=== PATIENT | female | born 1940 | race Caucasian/White ===

== ENCOUNTER 2021-11-18 08:52 | Emergency (ER) | payer OTHER ==
[~2021-11-18] VITALS: Ht 157.5 cm; Wt 71.2 kg
[2021-11-18] MEDS ORDERED: HYDR12.55 PO (09:04)
[2021-11-18] MEDS ORDERED: EZET10TA15 PO (09:05)
--- NOTE | 2021-11-18 09:34 | NUR ---
iv started on right AC, 20G, labs drawn at this time and sent to lab with urine sample. tolerated.
[2021-11-18 09:38] LABS: *BILIRUBIN,URIN NEGATIVE (NEGATIVE); *BLOOD, URINE 1+ (NEGATIVE); *CLARITY,URINE CLEAR (CLEAR); *COLOR,URINE YELLOW (YELLOW); *KETONES,URINE NEGATIVE (NEGATIVE); *UROBILINOGEN,URINE 0.2 E.U./dl (NORMAL); HEMATOCRIT 38.9 % (31.2-41.9); LEUKOCYTE ESTERASE ,URINE 1+ (NEGATIVE); MEAN CORPUSCULAR VOLUME 90.2 fL (75.5-95.3); NITRITE, URINE NEGATIVE (NEGATIVE); PH,URINE 5.5 (5.0-8.0); PLATELET COUNT (AUTO) 219 K/uL (179-408); UGLUCOSE NEGATIVE (NEGATIVE)
[2021-11-18 09:54] LABS: BILIRUBIN,DIRECT 0.2 mg/dL (0.0-0.2); BILIRUBIN,TOTAL 0.8 mg/dL (0.2-1.0); CREATININE 0.7 mg/dL (0.6-1.3); POTASSIUM 3.7 mmol/L (3.5-5.1); TOTAL PROTEIN, SERUM 7.7 g/dL (6.4-8.2)
[2021-11-18] MEDS ORDERED: POLY17PO4 PO (10:09)
[2021-11-18 12:03] LABS: BACTERIA,URINE FEW /HPF (NONE SEEN)
[2021-11-18 12:04] LABS: SQUAMOUS EPITHELIAL CELL,UR MANY /HPF (NONE SEEN)
== END 2021-11-18 12:15 | disposition home or self-care (01) ==
LOC: ER 08:52
DX: R10.9 Unspecified abdominal pain (principal); K59.00 Constipation, unspecified; R31.9 Hematuria, unspecified; I10 Essential (primary) hypertension; Z88.0 Allergy status to penicillin; Z87.19 Personal history of other diseases of the digestive system
CPT/HCPCS: 36415; 83690; 85025; 87086; A4663

== ENCOUNTER 2022-06-04 22:53 | Inpatient (IN) | payer OTHER ==
[~2022-06-04] VITALS: Ht 157.5 cm; Wt 70.3 kg
[~2022-06-04 22:53] MED LIST: EZET10TA15 PO; HYDR12.55 PO; POLY17PO4 PO
--- NOTE | 2022-06-05 03:54 | NUR ---
seen and examined by MD Mcmillan
[2022-06-05] MEDS ORDERED: diphenhydrAMINE 50 MG/1 ML VIAL IV ONE (04:00)
[2022-06-05] MEDS ORDERED: METOCLOPRAMIDE HCL 10 MG/2 ML VIAL IV ONE (04:00)
[2022-06-05] MEDS ORDERED: IV NS 1000 ML 1,000 ML IV ONE ×3 (04:00→12:30)
[2022-06-05 04:05] LABS: MEAN CORPUSCULAR VOLUME 91.5 fL (75.5-95.3); PLATELET COUNT (AUTO) 212 K/uL (179-408)
[2022-06-05] MEDS ORDERED: METOCLOPRAMIDE HCL 10 MG/2 ML VIAL ONE (04:27)
[2022-06-05] MEDS ORDERED: diphenhydrAMINE 50 MG/1 ML VIAL ONE (04:28)
[2022-06-05 04:52] LABS: THYROID STIMULATING HORMONE 3.443 mIU/mL (0.358-3.740)
[2022-06-05 05:01] LABS: CARBON DIOXIDE 32 mmol/L (21-32); CHLORIDE 100 mmol/L (98-107); CREATININE 0.6 mg/dL (0.6-1.3); GLUCOSE 116 mg/dL (74-106); POTASSIUM 3.6 mmol/L (3.5-5.1); UREA NITROGEN, BLOOD 11 mg/dL (7-18)
[2022-06-05 05:10] LABS: ALANINE AMINOTRANSFERASE 63 U/L (14-59); ALKALINE PHOSPHATASE 62 U/L (50-136); ASPARTATE AMINOTRANSFERASE 58 U/L (15-37); BILIRUBIN,DIRECT 0.3 mg/dL (0.0-0.2); BILIRUBIN,TOTAL 1.2 mg/dL (0.2-1.0); TOTAL PROTEIN, SERUM 8.1 g/dL (6.4-8.2)
[2022-06-05] MEDS ORDERED: MECLIZINE HCL 25 MG TABLET PO ONE (05:45)
--- NOTE | 2022-06-05 06:15 | NUR ---
Dr. Mcmillan assessed and observed pt's gait while walking.
[2022-06-05 06:39] LABS: *BILIRUBIN,URIN NEGATIVE (NEGATIVE); *BLOOD, URINE 2+ (NEGATIVE); *CLARITY,URINE CLEAR (CLEAR); *COLOR,URINE YELLOW (YELLOW); *KETONES,URINE NEGATIVE (NEGATIVE); *UROBILINOGEN,URINE 0.2 E.U./dl (NORMAL); LEUKOCYTE ESTERASE ,URINE NEGATIVE (NEGATIVE); NITRITE, URINE NEGATIVE (NEGATIVE); UGLUCOSE NEGATIVE (NEGATIVE)
[2022-06-05] MEDS ORDERED: ROSU5TAB PO (06:51)
[2022-06-05] MEDS ORDERED: OMEP20TA5 PO (06:51)
[2022-06-05] MEDS ORDERED: IOHEXOL 350 100 ML INFUS..BTL ONE (07:07)
[2022-06-05] MEDS ORDERED: SWABABLE VALVE TRANSFER SET EA MC ONE (07:08)
[2022-06-05] MEDS ORDERED: IV NORMAL SALINE 250 ML IV ONE (07:09)
[2022-06-05 07:15] LABS: BACTERIA,URINE FEW /HPF (NONE SEEN); SQUAMOUS EPITHELIAL CELL,UR FEW /HPF (NONE SEEN); WBC,URINE NONE SEEN /HPF (0-3)
[2022-06-05] MEDS ORDERED: MECLIZINE HCL 25 MG TABLET PO PRN (10:45)
[2022-06-05] MEDS ORDERED: LORAZEPAM 2 MG/1 ML VIAL IV PRN (10:45)
[2022-06-05] MEDS ORDERED: ONDANSETRON 4 MG/2 ML VIAL IV PRN (10:45)
[2022-06-05] MEDS ORDERED: REMEDY ESSENTIAL ZINC PASTE 113 GM TP PRN (10:45)
[2022-06-05] MEDS ORDERED: HOME MED MISCELLANEOUS XX SCH (10:45)
[2022-06-05] MEDS ORDERED: TEMAZEPAM 15 MG CAPSULE PO PRN (10:45)
[2022-06-05] MEDS ORDERED: ACETAMINOPHEN 325 MG TABLET PO PRN (10:45)
[2022-06-05] MEDS ORDERED: MAGNESIUM HYDROXIDE 30 ML LIQUID UDC PO PRN (10:45)
[2022-06-05] MEDS ORDERED: HYDROCODONE/APAP 5-325MG TABLET PO PRN (10:45)
[2022-06-05] MEDS ORDERED: MORPHINE SULFATE 2 MG/1 ML DISP.SYRIN IV PRN (10:45)
[2022-06-05] MEDS ORDERED: VANCOMYCIN IV 1,500 MG in IV DEXTROSE 5% 250 ML IV ONE (12:30)
[2022-06-05] MEDS ORDERED: HYDROMORPHONE 1 MG/1 ML DISP.SYRIN IV ONE (12:30)
--- NOTE | 2022-06-05 14:54 | NUR ---
PT WENT TO [facility] FOR MRI VIA AMBULANCE.
--- NOTE | 2022-06-05 16:11 | NUR ---
PT CAME BACK FROM [facility]. PT TOLERATED TO PROCEDURE WITHOUT COMPLICATIONS.
--- NOTE | 2022-06-05 16:26 | NUR ---
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 PT WAS TRANSFERED TO ROOM #306.
[2022-06-05 17:25] VITALS: BP 159/63
[2022-06-05] MEDS: IV NS 1000 ML 1,000 ML IV PRN (18:12)
--- NOTE | 2022-06-05 18:19 | NUR ---
Pt. admitted from ER. Alert and oriented x4. Able to ambulate with assist. Compliance with the care given. Skin intact. No c/o pain. All safety measure applied. Call light within reach. No acute distress noted. Resting in bed at this time. Will keep monitoring the patient.
[2022-06-05] MEDS ORDERED: predniSONE 20 MG TABLET PO ONE (19:30)
[2022-06-05 20:00] VITALS: BP 145/63
[2022-06-05] MEDS: ATORVASTATIN 10 MG TABLET PO SCH (20:31)
[2022-06-06 00:14] VITALS: BP 110/83
[2022-06-06 04:00] VITALS: BP 112/52
--- NOTE | 2022-06-06 04:03 | NUR ---
AAOx3-4 VSS Admitted for vertigo. No signs of dizziness noted. Needs attended. Fall precautions maintained. IVF's infusing well. No complaints presented during shift. Repositioned for comfort. Incontinent of bowel/bladder. Kept clean and dry. No acute distress noted. Will monitor patient. Siderails up for safety.
[2022-06-06] MEDS: PANTOPRAZOLE SODIUM 40 MG TABLET.DR PO SCH (06:28)
[2022-06-06 06:56] LABS: HEMATOCRIT 36.8 % (31.2-41.9); MEAN CORPUSCULAR HEMOGLOBIN 32.3 uug (24.7-32.8); MEAN CORPUSCULAR VOLUME 91.3 fL (75.5-95.3); PLATELET COUNT (AUTO) 222 K/uL (179-408)
[2022-06-06 07:08] LABS: CREATININE 0.8 mg/dL (0.6-1.3); MAGNESIUM 1.8 mg/dL (1.8-2.4); PHOSPHOROUS 2.9 mg/dL (2.5-4.9); POTASSIUM 3.8 mmol/L (3.5-5.1)
[2022-06-06 07:25] LABS: THYROID STIMULATING HORMONE 0.67 mIU/mL (0.358-3.740)
[2022-06-06] MEDS ORDERED: predniSONE 50 MG TABLET PO ONE (09:00)
[2022-06-06 11:58] VITALS: BP 132/83
[2022-06-06 16:00] VITALS: BP 130/65
--- NOTE | 2022-06-06 17:01 | NUR ---
Pt. has been stable through out the shift. Compliance with the care given. Alert and oriented x4. No c/o dizziness, headache and nausea or vomiting noted. Call light within reach. Able to make the need known. No C/O pain. Will keep monitoring the patient.
[2022-06-06 20:00] VITALS: BP 143/59
[2022-06-06] MEDS: ATORVASTATIN 10 MG TABLET PO SCH (21:31)
[2022-06-06] MEDS: IV NS 1000 ML 1,000 ML IV PRN (23:00)
[2022-06-07] VITALS: BP 122/55
[2022-06-07 04:28] VITALS: BP 141/62
[2022-06-07] MEDS: PANTOPRAZOLE SODIUM 40 MG TABLET.DR PO SCH (06:44)
--- NOTE | 2022-06-07 07:02 | NUR ---
REPORT GIVEN TO RENAN BAKER Addendum: 06/07/22 at 0712 by [facility] [id number] RN REPORT GIVEN TO RENAN THOMASON
[2022-06-07] MEDS ORDERED: ZOLP5TAB2 PO (08:34)
[2022-06-07] MEDS ORDERED: predniSONE 20 MG TABLET PO ONE (09:00)
--- NOTE | 2022-06-07 10:00 | NUR ---
PATIENT SEEN AND EXAMINED BY SEKOU SLATER WITH ORDER TO DISCHARGE PATIENT HOME TODAY PATIENTS DAUGHTER CORIE AWARE AND STATED WILL BE ABLE TO TAKE PATIENT HOME THIS AFTERNOON.
[2022-06-07 12:10] VITALS: BP 127/55
--- NOTE | 2022-06-07 13:30 | NUR ---
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
[2022-06-08] MEDS ORDERED: predniSONE 20 MG TABLET PO ONE (09:00)
[2022-06-09] MEDS ORDERED: predniSONE 20 MG TABLET PO ONE (09:00)
[2022-06-10] MEDS ORDERED: predniSONE 10 MG TABLET PO ONE (09:00)
[2022-06-11] MEDS ORDERED: predniSONE 5 MG TABLET PO ONE (09:00)
[2022-06-12] MEDS ORDERED: predniSONE 2.5 MG TABLET PO ONE (09:00)
== END 2022-06-07 13:30 | disposition home or self-care (01) | DRG 149 ==
LOC: ER 22:53 → TELE3 06-05 16:23
PROVIDERS: ADMIT Nurse Practitioner Acute Care; ATTEND Nurse Practitioner Acute Care
DX: H81.20 Vestibular neuronitis, unspecified ear (principal); E78.5 Hyperlipidemia, unspecified; E66.9 Obesity, unspecified; G89.29 Other chronic pain; K21.9 Gastro-esophageal reflux disease without esophagitis; Z88.0 Allergy status to penicillin; Z96.652 Presence of left artificial knee joint; I10 Essential (primary) hypertension; Z68.28 Body mass index [BMI] 28.0-28.9, adult; Z20.822 Contact with and (suspected) exposure to COVID-19
CPT/HCPCS: 36415; 70450; 70496; 70551; 71045; 83605; 83735; 84100; 84443; 84484; 85025; 85651; 86140; 87040; 93005; A4663; G0378; J1200; J2765; J7040; J7512; J8597; Q9967